=== PATIENT | male | born 1940 | race Hispanic/Latino ===

== ENCOUNTER 2021-05-24 16:18 | Inpatient (IN) | payer MEDICARE ==
[~2021-05-24] VITALS: Ht 182.9 cm; Wt 90.7 kg
[2021-05-24 16:57] LABS: BASOPHILS % 0.1 % (0.0-1.0); HEMATOCRIT 27.4 % (38.2-49.6); LYMPHOCYTES # (AUTO) 1.9 (1.0-3.2); LYMPHOCYTES % 10.3 % (18.0-39.1); MEAN CORPUSCULAR HEMOGLOBIN 33.5 pg (28-32); MEAN CORPUSCULAR HGB CONC 32.8 g/dL (31-35); MEAN CORPUSCULAR VOLUME 101.9 fL (81-99); MONOCYTES # (AUTO) 1.7 (0.2-0.8); MONOCYTES % 9.5 % (4.4-11.3); NEUTROPHILS # (AUTO) 14.2 (2.1-6.9); NEUTROPHILS % 79.3 % (38.7-80.0); PLATELET COUNT 197 x10e3/uL (140-360); RED BLOOD COUNT 2.69 x10e6/uL (4.3-5.7)
[2021-05-24 16:58] LABS: CLARITY,URINE HAZY (CLEAR); COLOR,URINE YELLOW (YELLOW); KETONES,URINE NEGATIVE (NEGATIVE); LEUKOCYTE ESTERASE ,URINE NEGATIVE (NEGATIVE); NITRITE,URINE NEGATIVE (NEGATIVE); PROTEIN,URINE DIPSTICK 2+ (NEGATIVE); URINE UROBILINOGEN 0.2 mg/dL (0.2 - 1)
[2021-05-24 17:12] LABS: BACTERIA,URINE MODERATE /HPF; RBC,URINE 21-50 /HPF (0-5)
[2021-05-24] MEDS ORDERED: ACETAMINOPHEN 650 MG SUPP PR ONE (17:15)
[2021-05-24] MEDS ORDERED: SODIUM CHLORIDE 0.9% 1000ML 1,000 ML IV SCH (17:15)
[2021-05-24] MEDS ORDERED: CEFEPIME 1 GM in SODIUM CHLORIDE 0.9% 50ML 50 ML IV ONE (17:15)
[2021-05-24 17:16] LABS: ALBUMIN 3.6 g/dL (3.5-5.0); ANION GAP 13.2 mmol/L (8-16); CALCIUM 8.1 mg/dL (8.4-10.2); CREATININE, SERUM 1.09 mg/dL (0.72-1.25); POTASSIUM 4.2 mmol/L (3.5-5.1)
[2021-05-24 17:22] LABS: CREATINE KINASE MB 0.9 ng/mL (0-5.0)
[2021-05-24] MEDS: SODIUM CHLORIDE 0.9% 1000ML 1,000 ML IV SCH ×3 (17:53→19:07)
[2021-05-24 18:09] LABS: INR 1.8; PARTIAL THROMBOPLASTIN TIME 35.7 seconds (23.8-35.5); PROTHROMBIN TIME 21.8 seconds (11.9-14.5)
[2021-05-24] MEDS ORDERED: DIGOXIN INJ 0.25 MG/ML 2 ML AMP IV ONE (18:15)
[2021-05-24] MEDS ORDERED: METOPROLOL TART50 MG PO (18:23)
[2021-05-24] MEDS ORDERED: LISINOPRIL10 MG PO (18:23)
[2021-05-24] MEDS ORDERED: SIMVASTATIN40 MG PO (18:23)
[2021-05-24] MEDS ORDERED: WARFARIN SODIUM5 MG PO (18:23)
[2021-05-24] MEDS ORDERED: GLIMEPIRIDE4 MG PO (18:23)
[2021-05-24] MEDS ORDERED: ACETAMINOPHEN 325 MG TAB PO PRN (19:15)
[2021-05-24] MEDS ORDERED: IBUPROFEN 800MG/ 200ML 200 ML IV PRN (19:21)
[2021-05-24] MEDS ORDERED: SODIUM CHLORIDE 0.9% 1000ML 1,000 ML IV STA (20:19)
[2021-05-24] MEDS: INSULIN REGULAR, HUMAN 100 UNIT/1 ML SQ SCH (20:33)
[2021-05-24] MEDS ORDERED: SODIUM CHLORIDE 0.9% 1000ML 1,000 ML IV ONE (20:45)
[2021-05-24] MEDS ORDERED: IOPAMIDOL 370 MG/ML 200 ML INFUS..BTL INJ ONE (21:29)
[2021-05-24] MEDS ORDERED: SODIUM CHLORIDE 0.9% 50ML 50 ML ONE (21:29)
[2021-05-24] MEDS ORDERED: ATROPINE SULFATE 1 MG/ML VIAL IV ONE (22:45)
[2021-05-24] MEDS ORDERED: ATROPINE SULFATE 0.1 MG/ML 10ML SYR ONE (22:48)
[2021-05-24] MEDS: DEXTROSE 50% SYRINGE 50 ML IV PRN (22:53)
[2021-05-24 23:38] LABS: AMPHETAMINES SCREEN,URINE NEGATIVE (NEGATIVE); BENZODIAZEPINES SCREEN,URINE NEGATIVE (NEGATIVE); PHENCYCLIDINE SCREEN,URINE NEGATIVE (NEGATIVE)
[2021-05-25 00:40] LABS: CREATINE KINASE MB 1.4 ng/mL (0-5.0)
[2021-05-25] MEDS ORDERED: CEFEPIME 1 GM in SODIUM CHLORIDE 0.9% 50ML 50 ML IV SCH (02:00)
[2021-05-25] MEDS: SODIUM CHLORIDE 0.9% 1000ML 1,000 ML IV SCH (03:46)
[2021-05-25] MEDS ORDERED: DEXTROSE 5%/0.45% SOD CHL 1,000 ML IV SCH (05:00)
[2021-05-25] MEDS ORDERED: ACETAMINOPHEN 650 MG SUPP PR PRN (05:15)
[2021-05-25] MEDS: DEXTROSE 50% SYRINGE 50 ML IV PRN (05:15)
[2021-05-25] MEDS ORDERED: ACETAMINOPHEN 650 MG SUPP PR ONE (05:16)
[2021-05-25 05:33] LABS: BASOPHILS % 0.2 % (0.0-1.0); EOSINOPHILS % 0.2 % (0.0-6.0); HEMATOCRIT 22.4 % (38.2-49.6); HEMOGLOBIN 7.2 g/dL (14.0-18.0); LYMPHOCYTES % 13.6 % (18.0-39.1); MEAN CORPUSCULAR HEMOGLOBIN 33.8 pg (28-32); MEAN CORPUSCULAR HGB CONC 32.1 g/dL (31-35); MEAN CORPUSCULAR VOLUME 105.2 fL (81-99); MONOCYTES # (AUTO) 1.2 (0.2-0.8); MONOCYTES % 8.3 % (4.4-11.3); NEUTROPHILS # (AUTO) 11.3 (2.1-6.9); NEUTROPHILS % 77.1 % (38.7-80.0); PLATELET COUNT 160 x10e3/uL (140-360); RED BLOOD COUNT 2.13 x10e6/uL (4.3-5.7); RED CELL DISTRIBUTION WIDTH 13.2 % (11.7-14.4)
[2021-05-25 06:01] LABS: ALBUMIN 2.8 g/dL (3.5-5.0); ANION GAP 9.3 mmol/L (8-16); CALCIUM 7.3 mg/dL (8.4-10.2); CREATININE, SERUM 0.91 mg/dL (0.72-1.25); POTASSIUM 4.3 mmol/L (3.5-5.1)
[2021-05-25] MEDS ORDERED: IBUPROFEN 800MG/ 200ML 200 ML IV ONE (06:40)
[2021-05-25] MEDS: INSULIN REGULAR, HUMAN 100 UNIT/1 ML SQ SCH ×2 (07:30→11:30)
[2021-05-25] MEDS: PIPERACILLIN/TAZOBACTAM 3.375 GM in SODIUM CHLORIDE 0.9% 50ML 50 ML IV SCH ×2 (08:53→16:39)
[2021-05-25 13:00] VITALS: BP 143/50
[2021-05-25 13:14] LABS: HEMATOCRIT 24.9 % (38.2-49.6); HEMOGLOBIN 7.8 g/dL (14.0-18.0)
[2021-05-25] MEDS ORDERED: ACETAMINOPHEN 325 MG TAB PO PRN (13:45)
[2021-05-25 13:46] LABS: CREATINE KINASE MB 1.6 ng/mL (0-5.0)
[2021-05-25 16:01] VITALS: BP 139/58
[2021-05-25] MEDS: INSULIN LISPRO 100 UNIT/1 ML 3ML VIAL SQ SCH ×2 (16:30→21:00)
[2021-05-25] MEDS: WARFARIN SOD 2.5 MG TAB PO SCH (17:23)
[2021-05-25 20:00] VITALS: BP 155/71
[2021-05-26] VITALS (7 sets, daily range): BP systolic 153–163; BP diastolic 62–65
[2021-05-26 06:18] LABS: BASOPHILS % 0.2 % (0.0-1.0); EOSINOPHILS % 0.2 % (0.0-6.0); HEMATOCRIT 24.1 % (38.2-49.6); HEMOGLOBIN 7.9 g/dL (14.0-18.0); LYMPHOCYTES # (AUTO) 2.4 (1.0-3.2); LYMPHOCYTES % 19.2 % (18.0-39.1); MEAN CORPUSCULAR HEMOGLOBIN 33.9 pg (28-32); MEAN CORPUSCULAR HGB CONC 32.8 g/dL (31-35); MEAN CORPUSCULAR VOLUME 103.4 fL (81-99); MONOCYTES # (AUTO) 1.1 (0.2-0.8); MONOCYTES % 8.8 % (4.4-11.3); NEUTROPHILS # (AUTO) 8.8 (2.1-6.9); PLATELET COUNT 204 x10e3/uL (140-360); RED BLOOD COUNT 2.33 x10e6/uL (4.3-5.7); RED CELL DISTRIBUTION WIDTH 13.1 % (11.7-14.4)
[2021-05-26 06:27] LABS: INR 2.33; PROTHROMBIN TIME 26.7 seconds (11.9-14.5)
[2021-05-26 06:36] LABS: CALCIUM 7.9 mg/dL (8.4-10.2); CREATININE, SERUM 0.83 mg/dL (0.72-1.25)
[2021-05-26 06:53] LABS: CHOL/HDL RATIO 3.4 (3.9-4.7)
[2021-05-26 07:08] LABS: THYROID STIMULATING HORMONE 0.624 uIU/mL (0.350-4.940)
[2021-05-26] MEDS: INSULIN LISPRO 100 UNIT/1 ML 3ML VIAL SQ SCH ×4 (07:30→21:00)
[2021-05-26] MEDS: PIPERACILLIN/TAZOBACTAM 3.375 GM in SODIUM CHLORIDE 0.9% 50ML 50 ML IV SCH ×4 (08:20→16:10)
[2021-05-26] MEDS: IRON SUCROSE 100 MG in SODIUM CHLORIDE 0.9% 100 ML 100 ML IV SCH (13:32)
[2021-05-26] MEDS: WARFARIN SOD 2.5 MG TAB PO SCH (17:06)
[2021-05-27] VITALS (8 sets, daily range): BP systolic 130–163; BP diastolic 53–69
[2021-05-27 06:25] LABS: BASOPHILS % 0.3 % (0.0-1.0); EOSINOPHILS # (AUTO) 0.1 (0.0-0.4); EOSINOPHILS % 1.4 % (0.0-6.0); HEMATOCRIT 24.2 % (38.2-49.6); HEMOGLOBIN 7.8 g/dL (14.0-18.0); LYMPHOCYTES # (AUTO) 2.2 (1.0-3.2); LYMPHOCYTES % 21.3 % (18.0-39.1); MEAN CORPUSCULAR HEMOGLOBIN 33.2 pg (28-32); MEAN CORPUSCULAR HGB CONC 32.2 g/dL (31-35); MONOCYTES # (AUTO) 0.9 (0.2-0.8); MONOCYTES % 8.6 % (4.4-11.3); NEUTROPHILS # (AUTO) 6.9 (2.1-6.9); NEUTROPHILS % 67.9 % (38.7-80.0); PLATELET COUNT 227 x10e3/uL (140-360); RED BLOOD COUNT 2.35 x10e6/uL (4.3-5.7); RED CELL DISTRIBUTION WIDTH 12.8 % (11.7-14.4)
[2021-05-27 06:49] LABS: ALBUMIN 2.8 g/dL (3.5-5.0); ALBUMIN/GLOBULIN RATIO 0.8 (0.8-2.0); ANION GAP 13.8 mmol/L (8-16); CALCIUM 8.2 mg/dL (8.4-10.2); CREATININE, SERUM 0.8 mg/dL (0.72-1.25); POTASSIUM 3.8 mmol/L (3.5-5.1)
[2021-05-27 06:53] LABS: INR 2.15; PROTHROMBIN TIME 25.1 seconds (11.9-14.5)
[2021-05-27] MEDS: INSULIN LISPRO 100 UNIT/1 ML 3ML VIAL SQ SCH ×4 (07:30→21:00)
[2021-05-27] MEDS: PIPERACILLIN/TAZOBACTAM 3.375 GM in SODIUM CHLORIDE 0.9% 50ML 50 ML IV SCH ×5 (08:28→23:23)
[2021-05-27] MEDS: IRON SUCROSE 100 MG in SODIUM CHLORIDE 0.9% 100 ML 100 ML IV SCH (12:32)
[2021-05-27] MEDS: WARFARIN SOD 2.5 MG TAB PO SCH (17:20)
[2021-05-28] VITALS (9 sets, daily range): BP systolic 138–157; BP diastolic 55–75
[2021-05-28] MEDS: INSULIN LISPRO 100 UNIT/1 ML 3ML VIAL SQ SCH ×4 (07:30→20:03)
[2021-05-28] MEDS: PIPERACILLIN/TAZOBACTAM 3.375 GM in SODIUM CHLORIDE 0.9% 50ML 50 ML IV SCH ×3 (08:59→23:42)
[2021-05-28] MEDS: IRON SUCROSE 100 MG in SODIUM CHLORIDE 0.9% 100 ML 100 ML IV SCH (12:30)
[2021-05-28] MEDS: WARFARIN SOD 2.5 MG TAB PO SCH (17:55)
[2021-05-29] VITALS: BP 137/77
[2021-05-29 05:07] LABS: BASOPHILS % 0.3 % (0.0-1.0); EOSINOPHILS # (AUTO) 0.2 (0.0-0.4); EOSINOPHILS % 1.7 % (0.0-6.0); HEMATOCRIT 23.5 % (38.2-49.6); HEMOGLOBIN 7.6 g/dL (14.0-18.0); LYMPHOCYTES # (AUTO) 1.4 (1.0-3.2); MEAN CORPUSCULAR HEMOGLOBIN 33.3 pg (28-32); MEAN CORPUSCULAR HGB CONC 32.3 g/dL (31-35); MEAN CORPUSCULAR VOLUME 103.1 fL (81-99); MONOCYTES # (AUTO) 1.2 (0.2-0.8); MONOCYTES % 12.5 % (4.4-11.3); NEUTROPHILS # (AUTO) 7.1 (2.1-6.9); NEUTROPHILS % 71.1 % (38.7-80.0); PLATELET COUNT 302 x10e3/uL (140-360); RED BLOOD COUNT 2.28 x10e6/uL (4.3-5.7); RED CELL DISTRIBUTION WIDTH 12.7 % (11.7-14.4)
[2021-05-29 05:14] LABS: INR 2.54; PROTHROMBIN TIME 28.6 seconds (11.9-14.5)
[2021-05-29 05:24] LABS: ALBUMIN 2.7 g/dL (3.5-5.0); ALBUMIN/GLOBULIN RATIO 0.7 (0.8-2.0); ANION GAP 13.9 mmol/L (8-16); CALCIUM 8.3 mg/dL (8.4-10.2); CREATININE, SERUM 0.77 mg/dL (0.72-1.25); POTASSIUM 3.9 mmol/L (3.5-5.1)
[2021-05-29 05:32] VITALS: BP 137/60
[2021-05-29] MEDS: DEXTROSE 50% SYRINGE 50 ML IV PRN (05:46)
[2021-05-29] MEDS ORDERED: DEXTROSE 5%/0.9% SOD CHL 1,000 ML IV SCH (06:30)
[2021-05-29 08:30] VITALS: BP 162/73
[2021-05-29] MEDS: PIPERACILLIN/TAZOBACTAM 3.375 GM in SODIUM CHLORIDE 0.9% 50ML 50 ML IV SCH ×2 (08:46→16:00)
[2021-05-29 08:56] VITALS: BP 162/73
[2021-05-29 12:02] VITALS: BP 116/68
[2021-05-29] MEDS ORDERED: Warfarin Sod PO (14:35)
[2021-05-29 16:50] VITALS: BP 153/64
[2021-05-29] MEDS: WARFARIN SOD 2.5 MG TAB PO SCH (17:00)
[2021-05-29] MEDS ORDERED: DOXYCYCLINE HY100 MG PO (18:26)
== END 2021-05-29 19:00 | disposition home or self-care (01) | DRG 871 ==
LOC: ER 17:10 → ERHOLD 19:36 → MED/SURG3 05-25 13:22
PROVIDERS: ADMIT Internal Medicine; ATTEND Internal Medicine
DX: A41.9 Sepsis, unspecified organism (principal); J18.9 Pneumonia, unspecified organism; I48.20 Chronic atrial fibrillation, unspecified; E87.1 Hypo-osmolality and hyponatremia; R65.20 Severe sepsis without septic shock; Z79.01 Long term (current) use of anticoagulants; E78.5 Hyperlipidemia, unspecified; D50.9 Iron deficiency anemia, unspecified; E11.649 Type 2 diabetes mellitus with hypoglycemia without coma; Z20.822 Contact with and (suspected) exposure to COVID-19
CPT/HCPCS: 36415; 51700; 70450; 70491; 71045; 80048; 80053; 80061; 80307; 81001; 82140; 82550; 82553; 82948; 83540; 83605; 84443; 84466; 84484; 85014; 85018; 85025; 85610; 85730; 87040; 87086; 93005; 93306; 96367; 97139; 99285; J0456; J0692; J1160; J1756; J2543; J7030; J7042; J7050; J7799; Q9967; U0002